=== PATIENT | female | born 1965 | race Hispanic/Latino ===

== ENCOUNTER 2017-10-02 19:10 | Emergency (ER) | payer MEDICARE, OTHER ==
[~2017-10-02] VITALS: Ht 317.5 cm; Wt 83.9 kg
[~2017-10-02 19:10] MED LIST: ASPIRIN325 MG PO; TYLENOL WITH C1 EACH PO
--- OUTSIDE RECORDS SUMMARY | 2017-10-02 19:13 | XMS REPORT | Clinical Summary ---
Author Author [facility] Organization [facility] Address Unknown Phone Unavailable Care Team Providers Care Acid Tender Name Role Phone Yifan Buenrostro MD PCP Allergies No Known Allergies Current Medications Prescription Sig. Disp. Refills Start End Date Status Date acetaminophen (TYLENOL) Take 325 mg by mouth Active 325 MG tablet every 6 (six) hours as needed for fever. Active Problems No known active problems Family History Relation Name Status Comments Brother seizures Social History Tobacco Use Types Packs/Day Years Used Date Current Every Day Smoker Cigarettes 0.25 34 Alcohol Use Drinks/Week oz/Week Comments No Sex Assigned at Date Recorded Not on file Last Filed Vital Signs Not on file Plan of Treatment Not on file Results Not on fileafter 10/01/2016 Insurance Payer Benefit Subscriber ID Type Phone Address Plan / Group [employer]xxxxxxxx [facility]
[2017-10-02] MEDS ORDERED: ONDANSETRON HCL 4 MG ORAL DISINTEGRATING TAB ONE (19:39)
[2017-10-02] MEDS ORDERED: ONDANSETRON HCL 4 MG ORAL DISINTEGRATING TAB PO ONE (19:45)
[2017-10-02] MEDS ORDERED: DEXAMETHASONE SOD PHOS 10 MG/1 ML VIAL INJ ONE (19:45)
[2017-10-02] MEDS ORDERED: ALBUTEROL/IPRATROPIUM 3 ML NEB NEB ONE ×2 (19:45→20:45)
[2017-10-02 21:17] VITALS: BP 124/76
--- NOTE | 2017-10-02 21:33 | Diagnostic Imaging Report ---
EXAMINATION: CHEST 2 VIEWS INDICATION: Vomiting, diarrhea COMPARISON: None FINDINGS: TUBES and LINES: None. LUNGS: Lungs are not well inflated. Lungs are clear. There is no evidence of pneumonia or pulmonary edema. PLEURA: No pleural effusion or pneumothorax. HEART AND MEDIASTINUM: The cardiomediastinal silhouette is unremarkable. BONES AND SOFT TISSUES: No acute osseous lesion. Lower cervical spine anterior fusion with plates and screws. Soft tissues are unremarkable. UPPER ABDOMEN: No free air under the diaphragm. IMPRESSION: No acute thoracic abnormality. Signed by: Dr. Hitesh Domingo M.D. on 10/02/2017 9:29 PM
== END 2017-10-02 21:22 | disposition home or self-care (01) ==
LOC: ER 19:10
DX: R06.00 Dyspnea, unspecified (principal); R05 Cough; J20.9 Acute bronchitis, unspecified; I10 Essential (primary) hypertension; G89.29 Other chronic pain; F17.210 Nicotine dependence, cigarettes, uncomplicated
CPT/HCPCS: 71046; 93005; 94644; 99283; J1100

== ENCOUNTER 2021-06-10 08:41 | Emergency (ER) | payer OTHER ==
[~2021-06-10] VITALS: Ht 317.5 cm; Wt 83.9 kg
[2021-06-10] MEDS ORDERED: ORPHENADRINE CITRATE 30 MG/ML VIAL IM ONE (09:30)
[2021-06-10] MEDS ORDERED: HYDROCODONE/APAP 10MG-325MG TAB PO ONE (09:30)
[2021-06-10] MEDS ORDERED: KETOROLAC TROMETHAMINE 60 MG/2 ML VIAL IM ONE (09:30)
[2021-06-10 12:05] VITALS: BP 107/74
== END 2021-06-10 12:06 | disposition home or self-care (01) ==
LOC: ER 08:45
DX: S39.012A Strain of muscle, fascia and tendon of lower back, initial encounter (principal); W01.0XXA Fall on same level from slipping, tripping and stumbling without subsequent striking against object, initial encounter; Y93.01 Activity, walking, marching and hiking; Y92.008 Other place in unspecified non-institutional (private) residence as the place of occurrence of the external cause; I10 Essential (primary) hypertension; Z86.73 Personal history of transient ischemic attack (TIA), and cerebral infarction without residual deficits
CPT/HCPCS: 70450; 72125; 72131; 72170; 99284; J1885; J2360

== ENCOUNTER 2022-04-06 04:47 | Emergency (ER) | payer MEDICARE, OTHER ==
[~2022-04-06] VITALS: Ht 317.5 cm; Wt 83.9 kg
== END 2022-04-06 06:43 | disposition home or self-care (01) ==
LOC: ER 05:18
DX: M25.551 Pain in right hip (principal); M54.9 Dorsalgia, unspecified; G89.29 Other chronic pain; I10 Essential (primary) hypertension; Z96.641 Presence of right artificial hip joint; Z86.73 Personal history of transient ischemic attack (TIA), and cerebral infarction without residual deficits
CPT/HCPCS: 99282

== ENCOUNTER 2022-11-13 12:45 | Emergency (ER) | payer MEDICARE ==
[~2022-11-13] VITALS: Ht 317.5 cm; Wt 83.9 kg
[2022-11-13 13:13] VITALS: O2SAT 100
[2022-11-13] MEDS ORDERED: NAPROSYN500 MG PO (14:52)
[2022-11-13] MEDS ORDERED: PREDNISONE20 MG PO (14:52)
== END 2022-11-13 15:02 | disposition home or self-care (01) ==
LOC: ER 12:56
DX: M25.522 Pain in left elbow (principal); M71.522 Other bursitis, not elsewhere classified, left elbow; I10 Essential (primary) hypertension; M54.9 Dorsalgia, unspecified; G89.29 Other chronic pain; F17.210 Nicotine dependence, cigarettes, uncomplicated; Z86.73 Personal history of transient ischemic attack (TIA), and cerebral infarction without residual deficits
CPT/HCPCS: 99283

== ENCOUNTER 2024-07-16 12:46 | Emergency (ER) | payer MEDICARE, OTHER ==
[~2024-07-16] VITALS: Ht 160 cm; Wt 86.2 kg
[~2024-07-16 12:46] MED LIST changes: +NAPROSYN500 MG PO; +PREDNISONE20 MG PO
[2024-07-16 12:57] VITALS: PULSE 85; RESP 17; TEMP 97.6
[2024-07-16] MEDS: HYDROCODONE/APAP 7.5MG-325MG 1 EA TAB PO ONE (14:00)
[2024-07-16] MEDS: ORPHENADRINE CITRATE 30 MG/ML VIAL IM ONE (14:01)
[2024-07-16] MEDS: KETOROLAC TROMETHAMINE 30 MG/ML VIAL IM STA (14:01)
[2024-07-16] MEDS ORDERED: METHOCARBAMOL750 MG PO (14:34)
[2024-07-16 14:48] VITALS: BP 119/71; PULSE 79; RESP 18; TEMP 98; O2SAT 99
== END 2024-07-16 14:45 | disposition home or self-care (01) ==
LOC: ER 13:30
DX: M25.552 Pain in left hip (principal); W18.39XA Other fall on same level, initial encounter; Y92.89 Other specified places as the place of occurrence of the external cause; I10 Essential (primary) hypertension; M54.9 Dorsalgia, unspecified; G89.29 Other chronic pain; Z86.73 Personal history of transient ischemic attack (TIA), and cerebral infarction without residual deficits
CPT/HCPCS: 99283; J1885; J2360